=== PATIENT | male | born 2000 | race Hispanic/Latino ===

== ENCOUNTER 2024-06-17 11:23 | Emergency (ER) | payer OTHER ==
[~2024-06-17] VITALS: Ht 177.8 cm; Wt 90.5 kg
[2024-06-17 11:24] VITALS: BP 156/88; TEMP 97.3; O2SAT 99
== END 2024-06-17 13:16 | disposition home or self-care (01) ==
LOC: M ED 11:23 → EDBD 11:23 → M ED 13:16
DX: S63.280A Dislocation of proximal interphalangeal joint of right index finger, initial encounter (principal); X50.0XXA Overexertion from strenuous movement or load, initial encounter; Y92.830 Public park as the place of occurrence of the external cause; Y93.66 Activity, soccer; Y99.9 Unspecified external cause status